=== PATIENT | female | born 1985 | race Caucasian/White ===

== ENCOUNTER 2019-08-26 09:01 | Emergency (ER) | payer SELFPAY ==
[~2019-08-26] VITALS: Ht 162 cm; Wt 41.7 kg
[~2019-08-26 09:01] MED LIST: ACET1TAB12 PO; ACHD5005 PO; ACHYD1T PO; ALB0.5V IH; ALBU17AE3 IH; ALPR.5T PO; ALPR1TAB7; AMIT100T2 PO; AMOX500C2 PO; CEPH500C PO; CIPR500S2 PO; CODE-54 PO; CPR500T PO; DCS100C PO; FAMO-119 PO; FERR-57 PO; HYDR-3454 PO; HYDR-690 PO; HYDR1CAP2 PO; HYDR1TAB75 PO; HYOS0.1216 PO; IBP800T PO; LISD70CA3 PO; METH4TAB PO; METR500T PO; MUPI1OIN5; NAPR-243 PO; NITR-65 PO; NITR100C3 PO; OMEP20CA12 PO; OMEP20TA7 PO; OMEP40CA27 PO; PANT40TA2 PO; PENI500T PO; PHEN200T27 PO; PREN1TAB39 PO; PRX20T PO; RANI150T90 PO; SUCR1TAB36 PO; SULF1TAB35 PO; TRAZ150T42 PO; TRM50T PO; VIVANCE
[2019-08-26 09:43] LABS: BILIRUBIN,URINE NEGATIVE (NEGATIVE); CLARITY,URINE SL CLOUDY; COLOR,URINE YELLOW; GLUCOSE, URINE (UA) NEGATIVE (NEGATIVE); KETONES,URINE NEGATIVE (NEGATIVE); LEUKOCYTE ESTERASE ,URINE TRACE (NEGATIVE); NITRITE,URINE POSITIVE (NEGATIVE); PROTEIN,URINE NEGATIVE (NEGATIVE)
[2019-08-26 09:50] LABS: BACTERIA,URINE LARGE /HPF
[2019-08-26] MEDS ORDERED: PHENAZOPYRIDINE 100 MG (PYRIDIUM) TABLET PO STA (10:54)
[2019-08-26] MEDS ORDERED: LACTATED RINGERS 1,000 ML IV ONE (10:54)
[2019-08-26] MEDS ORDERED: KETOROLAC 30 MG/ML VIAL IVP STA (10:54)
[2019-08-26 11:05] LABS: BASOPHILS % (AUTO) 0 % (0-10); EOSINOPHILS % (AUTO) 0 % (0-10); HEMATOCRIT 46 % (35-52); HEMOGLOBIN 15.7 G/DL (11.5-16.0); LYMPHOCYTES # (AUTO) 2.6 X 10^3 (1.0-4.0); LYMPHOCYTES % (AUTO) 25 % (12-44); MEAN CORPUSCULAR HEMOGLOBIN 33 PG (25-34); MEAN CORPUSCULAR HGB CONC 34 G/DL (32-36); MEAN CORPUSCULAR VOLUME 96 FL (80-99); MEAN PLATELET VOLUME 9.7 FL (7.4-10.4); MONOCYTES # (AUTO) 0.8 X 10^3 (0.0-1.0); MONOCYTES % (AUTO) 7 % (0-12); NEUTROPHILS # (AUTO) 7.2 X 10^3 (1.8-7.8); NEUTROPHILS % (AUTO) 68 % (42-75); PLATELET COUNT 202 10^3/uL (130-400); RED CELL DISTRIBUTION WIDTH 13.2 % (10.0-14.5); WHITE BLOOD COUNT 10.7 10^3/uL (4.3-11.0)
[2019-08-26 11:21] LABS: ALANINE AMINOTRANSFERASE 29 U/L (0-55); ALBUMIN 4.6 GM/DL (3.2-4.5); ALKALINE PHOSPHATASE 52 U/L (40-136); BILIRUBIN,TOTAL 0.5 MG/DL (0.1-1.0); BUN/CREATININE RATIO 18; CALCIUM 9.7 MG/DL (8.5-10.1); CARBON DIOXIDE 20 MMOL/L (21-32); CHLORIDE 110 MMOL/L (98-107); CREATININE SERUM 0.72 MG/DL (0.60-1.30); GFR ESTIMATED > 60; GLUCOSE 85 MG/DL (70-105); POTASSIUM 4.3 MMOL/L (3.6-5.0); SODIUM 138 MMOL/L (135-145); TOTAL PROTEIN 7.8 GM/DL (6.4-8.2)
[2019-08-26] MEDS ORDERED: cefTRIAXone FOR IV USE 1,000 MG in WATER (STERILE) FOR INJECTION 10 ML IV STA (11:51)
--- NOTE | 2019-08-26 12:22 | ED Abdominal Pain ---
General Chief Complaint: Abdominal/GI Problems Stated Complaint: R SIDE PAIN Nursing Triage Note: pt presents to ed with complaints of r lower abdominal and flank pain that that woke her up at 0200 this am. pt also reports n/v but states that is more of a chronic issue. Sepsis Screen: No Definite Risk Source of Information: Patient, Family Exam Limitations: No Limitations History of Present Illness Date Seen by Provider: Aug 26, 2019 Time Seen by Provider: 10:44 Initial Comments Here with report of right lower abdominal pain that is in the flank as well. UA done on arrival is nitrite positive. She reports that she's had some foul- smelling urine and pain over the last couple of days. Pain woke her up this morning early and has persisted since then. She has not taken anything for the pain. Denies fever. She has had some nausea and vomiting without she reports is related to esophageal strictures. He states it may be related a little bit to the illness now as well. Denies vaginal discharge or bleeding. Has had appendectomy. Denies bowel problems. Timing/Duration: 2-3 Days, Getting Worse Severity/Quality: Moderate Location: RLQ, Flank Radiation: Back, Groin Activities at Onset: None Associated Symptoms: Back Pain; No Chest Pain, No Fever/Chills; Nausea/Vomiting; No Shortness of Air, No Weakness Allergies and Home Medications Allergies Coded Allergies: acetaminophen (Verified Allergy, Unknown, 02/27/10) codeine (Verified Allergy, Unknown, 02/27/10) Home Medications Pantoprazole Sodium 40 Mg Tablet.dr, 40 MG PO DAILY Prescribed by: CHERYL ROBERT on 04/09/16 6396 Patient Home Medication List Home Medication List Reviewed: Yes Review of Systems Review of Systems Constitutional: see HPI; No chills, No fever EENTM: No Symptoms Reported Respiratory: No Symptoms Reported Cardiovascular: No Symptoms Reported Gastrointestinal: See HPI Genitourinary: See HPI Musculoskeletal: see HPI Skin: no symptoms reported All Other Systems Reviewed Negative Unless Noted: Yes Past Eoojphe-Rdjdrb-Hlaxus Hx Past Med/Social Hx: Reviewed Nursing Past Med/Soc Hx Patient Social History Alcohol Use: Denies Use Recreational Drug Use: Yes (weed) Drug of Choice: METH IV Smoking Status: Current Everyday Smoker Type Used: Cigarettes Former Smoker, Quit: Aug 30, 2015 Recent Foreign Travel: No Contact w/Someone Who Travel: No Recent Infectious Disease Expo: No Recent Hopitalizations: Yes (CHILDBIRTH X5) Physical Abuse: No Sexual Abuse: No Mistreated: No Fear: No Immunizations Up To Date Date of Influenza Vaccine: Mar 09, 2011 Seasonal Allergies Seasonal Allergies: No Past Medical History Surgeries: Yes (C-SECTIONS X2 2010 HYST.) Hysterectomy Respiratory: Yes Asthma Cardiac: No Neurological: No Reproductive Disorders: Yes Female Reproductive Disorders: Ovarian Cyst [employer] History: Hysterectomy Sexually Transmitted Disease: No UTI-Chronic Gastrointestinal: Yes (hep c, ) Hepatitis, Esophagitis Musculoskeletal: No Endocrine: No Cancer: Yes Esophageal Psychosocial: Yes Blood Disorders: No Family Medical History Reviewed Nursing Family Hx No Pertinent Family Hx Physical Exam Vital Signs Vital Signs - First Documented 08/26/19 09:14 Temp 36.6 Pulse 107 Resp 20 B/P (MAP) 95/78 (84) Pulse Ox 97 Capillary Refill : Less Than 3 Seconds Height/Weight/BMI Height: 5'4" Weight: 111lbs. oz. [id number]; 15.00 BMI Method:Stated General Appearance: WD/WN, mild distress Neck: full range of motion, supple Respiratory: lungs clear, normal breath sounds Cardiovascular: no murmur, tachycardia Gastrointestinal: soft; No guarding, No rebound; tenderness (right lower quadrant) Extremities: non-tender, normal inspection Back: CVA tenderness (R); No CVA tenderness (L), No vertebral tenderness Neurologic/Psychiatric: alert, oriented x 3 Skin: normal color, warm/dry Progress/Results/Core Measures Results/Orders Lab Results Laboratory Tests Test 08/26/19 09:19 08/26/19 10:50 Range/Units Urine Color YELLOW Urine Clarity SL CLOUDY Urine pH 6.0 5-9 Urine Specific [place] >=1.030 1.016-1.022 Urine Protein NEGATIVE NEGATIVE Urine Glucose (UA) NEGATIVE NEGATIVE Urine Ketones NEGATIVE NEGATIVE Urine Nitrite POSITIVE H NEGATIVE Urine Bilirubin NEGATIVE NEGATIVE Urine Urobilinogen 0.2 < = 1.0 MG/DL Urine Leukocyte Esterase TRACE H NEGATIVE Urine RBC (Auto) NEGATIVE NEGATIVE Urine RBC NONE /HPF Urine WBC 2-5 /HPF Urine Squamous Epithelial Cells 2-5 /HPF Urine Crystals NONE /LPF Urine Bacteria LARGE H /HPF Urine Casts NONE /LPF Urine Mucus NEGATIVE /LPF Urine Culture Indicated YES White Blood Count 10.7 4.3-11.0 10^3/uL Red Blood Count 4.83 4.35-5.85 10^6/uL Hemoglobin 15.7 11.5-16.0 G/DL Hematocrit 46 35-52 % Mean Corpuscular Volume 96 80-99 FL Mean Corpuscular Hemoglobin 33 25-34 PG Mean Corpuscular Hemoglobin Concent 34 32-36 G/DL Red Cell Distribution Width 13.2 10.0-14.5 % Platelet Count 202 130-400 10^3/uL Mean Platelet Volume 9.7 7.4-10.4 FL Neutrophils (%) (Auto) 68 42-75 % Lymphocytes (%) (Auto) 25 12-44 % Monocytes (%) (Auto) 7 0-12 % Eosinophils (%) (Auto) 0 0-10 % Basophils (%) (Auto) 0 0-10 % Neutrophils # (Auto) 7.2 1.8-7.8 X 10^3 Lymphocytes # (Auto) 2.6 1.0-4.0 X 10^3 Monocytes # (Auto) 0.8 0.0-1.0 X 10^3 Eosinophils # (Auto) 0.0 0.0-0.3 10^3/uL Basophils # (Auto) 0.0 0.0-0.1 10^3/uL Sodium Level 138 135-145 MMOL/L Potassium Level 4.3 3.6-5.0 MMOL/L Chloride Level 110 H 98-107 MMOL/L Carbon Dioxide Level 20 L 21-32 MMOL/L Anion Gap 8 5-14 MMOL/L Blood Urea Nitrogen 13 7-18 MG/DL Creatinine 0.72 0.60-1.30 MG/DL Estimat Glomerular Filtration Rate > 60 BUN/Creatinine Ratio 18 Glucose Level 85 70-105 MG/DL Calcium Level 9.7 8.5-10.1 MG/DL Corrected Calcium 8.5-10.1 MG/DL Total Bilirubin 0.5 0.1-1.0 MG/DL Aspartate Amino Transf (AST/SGOT) 21 5-34 U/L Alanine Aminotransferase (ALT/SGPT) 29 0-55 U/L Alkaline Phosphatase 52 40-136 U/L C-Reactive Protein High Sensitivity 0.05 0.00-0.50 MG/DL Total Protein 7.8 6.4-8.2 GM/DL Albumin 4.6 H 3.2-4.5 GM/DL My Orders Orders - WALT HUSAIN MD Ua Culture If Indicated (08/26/19 09:27) Urine Culture (08/26/19 09:19) Cbc With Automated Diff (08/26/19 10:54) Comprehensive Metabolic Panel (08/26/19 10:54) Hs C Reactive Protein (08/26/19 10:54) Ed Iv/Invasive Line Start (08/26/19 10:54) Lactated Ringers (Lr 1000 Ml Iv Solution (08/26/19 10:54) Ketorolac Injection (Toradol Injection) (08/26/19 10:54) Phenazopyridine Tablet (Pyridium Tablet) (08/26/19 10:54) Ceftriaxone For Iv Use (Rocephin For I (08/26/19 11:51) Medications Given in ED Current Medications Medications Dose Ordered Sig/Tim Route Start Time Stop Time Status Last Admin Dose Admin Lactated Ringer's 1,000 ml @ 0 mls/hr Q0M ONCE IV 08/26/19 10:54 08/26/19 10:56 DC 08/26/19 11:05 0 MLS/HR Vital Signs/I&O 08/26/19 09:14 Temp 36.6 Pulse 107 Resp 20 B/P (MAP) 95/78 (84) Pulse Ox 97 Blood Pressure Mean: 84 Progress Progress Note : Progress Note Seen and evaluated. I discussed multiple options with the patient after UA obtained and noted to be nitrite positive concerning for UTI. Due to moderate amount of pain we will go ahead and get IV and give 1 L LR and Toradol 30 mg IV. We will check labs. Monitor patient. 1200: Labs reassuring. Rocephin 1 g IV ord ered. Pain is much better after Toradol and we did give peridium 100 mg by mouth as well. We will continue outpatient therapy. Discharged home with return precautions. Patient verbalize understanding instructions and agreement with plan. Departure Impression Primary Impression: UTI (urinary tract infection) Qualified Codes: N30.00 - Acute cystitis without hematuria Disposition: HOME, SELF-CARE Condition: Improved Departure-Patient Inst. Decision time for Depature: 12:23 Referrals: [facility] (PCP/Family) Primary Care Physician Patient Instructions: Urinary Tract Infection, Adult (DC) Add. Discharge Instructions: All discharge instructions reviewed with patient and/or family. Voiced understanding. You may take ibuprofen 4 mg every 6-8 hours as needed for pain. You may take Tylenol/acetaminophen 1000 mg every 8 hours as needed for fever or pain. Drink plenty of fluids. Try to eat a normal diet and increase her nutrition including using supplement shakes if needed. Follow-up with your Dr. in a few days for recheck. Return for worse pain, fever, vomiting, weakness, breathing problems or other concerns as needed. Scripts Cephalexin (Cephalexin) 500 Mg Tablet 500 MG PO BID, #14 TAB 0 Refills Prov: WALT HUSAIN MD 08/26/19 WALT HUSAIN MD Aug 26, 2019 12:22
[2019-08-26] MEDS ORDERED: CEPH500T PO (12:23)
[2019-08-26 12:46] VITALS: BP 110/80
== END 2019-08-26 12:46 | disposition home or self-care (01) ==
LOC: EDUNIT# 09:01 → ER 09:02
DX: N30.00 Acute cystitis without hematuria (principal); J45.909 Unspecified asthma, uncomplicated; Z85.01 Personal history of malignant neoplasm of esophagus; Z87.19 Personal history of other diseases of the digestive system; F17.210 Nicotine dependence, cigarettes, uncomplicated; Z88.5 Allergy status to narcotic agent
CPT/HCPCS: 36415; 80053; 81000; 85025; 86141; 87077; 87088; 87186

== ENCOUNTER 2020-01-02 22:34 | Emergency (ER) | payer SELFPAY ==
[~2020-01-02 22:34] MED LIST changes: +CEPH500T PO
--- NOTE | 2020-01-03 01:00 | NUR ---
PT PRESENTED TO ER REGISTRATION AND STATED SHE WAS LEAVING.
== END 2020-01-03 01:00 | disposition left against medical advice (07) ==
LOC: EDUNIT# 22:34 → ER 22:35
DX: R10.9 Unspecified abdominal pain (principal)

== ENCOUNTER 2020-12-30 19:28 | Emergency (ER) | payer SELFPAY ==
[~2020-12-30] VITALS: Ht 162.5 cm; Wt 50.0 kg
[~2020-12-30 19:28] MED LIST changes: -OMEP40CA27 PO; +OMEP40CA6 PO
[2020-12-30 19:56] VITALS: BP 108/85
[2020-12-30] MEDS ORDERED: DOXY100T2 PO (20:38)
[2020-12-30] MEDS ORDERED: NAPR-1071 PO (20:38)
--- NOTE | 2020-12-30 20:38 | ED Upper Extremity ---
General Chief Complaint: Upper Extremity Stated Complaint: L ARMPIT SORE Nursing Triage Note: Pt ambulatory into ER with complaint of Knot under L. Armpit x2 days. Pt states that yesterday it was sore, and now it has gotten bigger and is worse. Pt denies it having a meneses or anything indicating it needs popped. Source: patient Exam Limitations: no limitations History of Present Illness Date Seen by Provider: Dec 30, 2020 Time Seen by Provider: 20:35 Initial Comments To ER with knot under left armpit for 2 days no fevers or chills. Is very tender to touch. Onset: just prior to arrival Severity: moderate Pain/Injury Location: left other (Axilla) Method of Injury: unknown Allergies and Home Medications Allergies Coded Allergies: acetaminophen (Verified Allergy, Unknown, 02/27/10) codeine (Verified Allergy, Unknown, 02/27/10) Home Medications Cephalexin 500 Mg Tablet, 500 MG PO BID Prescribed by: WALT HUSAIN on 08/26/19 1223 Pantoprazole Sodium 40 Mg Tablet.dr, 40 MG PO DAILY Prescribed by: CHERYL ROBERT on 04/09/16 1406 Patient Home Medication List Home Medication List Reviewed: Yes Review of Systems Constitutional: see HPI EENTM: see HPI Respiratory: no symptoms reported Cardiovascular: no symptoms reported Genitourinary: no symptoms reported Musculoskeletal: see HPI Skin: no symptoms reported Past Auzynob-Ebwhuc-Zfdyic Hx Patient Social History Tobacco Use?: Yes Tobacco type used: Cigarettes Smoking Status: Current Everyday Smoker Use of E-Cig and/or Vaping dev: No Substance use?: No Alcohol Use?: No Pt feels they are or have been: No Immunizations Up To Date Influenza Vaccine Up-to-Date: No; Not Current Seasonal Allergies Seasonal Allergies: No Past Medical History Surgeries: Yes (C-SECTIONS X2 2010 HYST.) Hysterectomy Respiratory: Yes Asthma Cardiac: No Neurological: No Reproductive Disorders: Yes Female Reproductive Disorders: Ovarian Cyst [employer] History: Hysterectomy Sexually Transmitted Disease: No UTI-Chronic Gastrointestinal: Yes (hep c, ) Hepatitis, Esophagitis Musculoskeletal: No Endocrine: No Cancer: Yes Esophageal Psychosocial: Yes Blood Disorders: No Family Medical History No Pertinent Family Hx Physical Exam Vital Signs Vital Signs - First Documented 12/30/20 19:56 Temp 36.2 Pulse 110 Resp 16 B/P (MAP) 108/85 (93) Pulse Ox 98 O2 Delivery Room Air Capillary Refill : Less Than 3 Seconds Height, Weight, BMI Height: 5'4" Weight: 111lbs. oz. 50.670641fy; 18.00 BMI Method:Stated General Appearance: WD/WN, no apparent distress Neck: non-tender, full range of motion Cardiovascular: regular rate, rhythm, no murmur Respiratory: no respiratory distress, no accessory muscle use Gastrointestinal: normal bowel sounds, non tender Shoulder: normal inspection, non-tender Elbow/Forearm: normal inspection, non-tender Wrist: Yes normal inspection, Yes non-tender Hand: normal inspection, non-tender Neurologic/Psychiatric: alert, normal mood/affect, oriented x 3 Skin: normal color, warm/dry . She shaves her armpit though there is no overlying infection that is apparent in the skin. No erythema no pustule. This is tender to palpation. On bedside ultrasound there is some cobblestoning of the tissues at this location but no fluid collection to suggest drainable abscess. Discussed with her that this could represent a very early infectious process that may develop into an abscess though it is more likely to be a reactive lymph node. Progress/Results/Core Measures Results/Orders My Orders Orders - CHERYL ROBERT APRN Rx-Hydrocodone/Apap 5-325 Mg (Rx-Vicodin (12/30/20 20:45) Doxycycline Hyclate Tablet (Vibramycin T (12/30/20 20:45) Vital Signs/I&O 12/30/20 19:56 Temp 36.2 Pulse 110 Resp 16 B/P (MAP) 108/85 (93) Pulse Ox 98 O2 Delivery Room Air Blood Pressure Mean: 93 Departure Impression Primary Impression: Lymphadenopathy, axillary Disposition: 01 HOME, SELF-CARE Condition: Stable Departure-Patient Inst. Decision time for Depature: 20:36 Referrals: [facility] (PCP/Family) Primary Care Physician Patient Instructions: Lymphadenitis Add. Discharge Instructions: 1. This could represent a very early infectious process that may develop into an abscess but currently there is no fluid collection or drainable abscess. This more likely represents a inflamed lymph node. Take the medication as directed. All discharge instructions reviewed with patient and/or family. Voiced understanding. Scripts Doxycycline Hyclate (Doxycycline Hyclate) 100 Mg Tablet 100 MG PO BID, #14 TAB 0 Refills Prov: CHERYL ROBERT APRN 12/30/20 Naproxen (Naprosyn) 500 Mg Tablet 500 MG PO BID PRN for PAIN-MODERATE (5-7), #30 TAB 0 Refills Prov: CHERYL ROBERT APRN 12/30/20 CHERYL ROBERT APRN Dec 30, 2020 20:38
[2020-12-30] MEDS ORDERED: DOXYCYCLINE 100 MG (VIBRAMYCIN) TABLET PO SCH (20:45)
== END 2020-12-30 20:44 | disposition home or self-care (01) ==
LOC: EDUNIT# 19:28 → ER 19:29
DX: R59.1 Generalized enlarged lymph nodes (principal); J45.909 Unspecified asthma, uncomplicated; F17.210 Nicotine dependence, cigarettes, uncomplicated
CPT/HCPCS: 99283

== ENCOUNTER 2021-08-05 09:30 | Emergency (ER) | payer SELFPAY ==
[~2021-08-05] VITALS: Ht 162.5 cm; Wt 50.0 kg
[~2021-08-05 09:30] MED LIST changes: +DOXY100T2 PO; +NAPR-1071 PO
[2021-08-05] MEDS ORDERED: KETOROLAC 30 MG/ML VIAL IVP ONE (09:45)
[2021-08-05] MEDS ORDERED: ONDANSETRON 4 MG/2 ML (SDV) Z0FRAN IVP ONE (09:45)
[2021-08-05] MEDS ORDERED: LACTATED RINGERS 1,000 ML IV ONE ×2 (09:45→10:24)
[2021-08-05] MEDS ORDERED: cefTRIAXone 1 GM PRE-MIX 50 ML IV ONE (09:45)
--- NOTE | 2021-08-05 09:49 | ED Abdominal Pain ---
General Stated Complaint: R SIDE / BACK PAIN - VOMITING Source of Information: Patient Exam Limitations: No Limitations History of Present Illness Date Seen by Provider: Aug 05, 2021 Time Seen by Provider: 09:28 Initial Comments Patient to the ER by private conveyance with her significant other with chief complaint that since yesterday she has been having intractable right flank down into her right groin abdominal pain 6 out of 10 crampy. She says she is intermittently had pains in this area over the past month to 2 months. No fevers or chills but she has had nausea and vomiting this morning. She took ibu profen 2 tablets yesterday and 3 tablets this morning about 2 hours ago which took the edge off her pain. No diarrhea. She had a normal bowel movement yesterday. She says she had some painful urination this morning and noticed her urine was dark. No history of kidney stones. No history of STI. No discharge or dyspareunia. She has had a hysterectomy related to pelvic floor prolapse and [facility]. She has had her appendix out in the past. She has had 3 C-sections and no other abdominal surgeries. Last oral intake was approximately 8:00. Allergies and Home Medications Allergies Coded Allergies: acetaminophen (Verified Allergy, Unknown, 02/27/10) codeine (Verified Allergy, Unknown, 02/27/10) Patient Home Medication List Home Medication List Reviewed: Yes Alprazolam (Alprazolam) 1 Mg Tablet, (Reported) Entered as Reported by: TANNER LOUIS on 04/09/16 1203 Cephalexin (Cephalexin) 500 Mg Tablet, 500 MG PO BID Prescribed by: WALT HUSAIN on 08/26/19 1223 Doxycycline Hyclate (Doxycycline Hyclate) 100 Mg Tablet, 100 MG PO BID Prescribed by: CHERYL ROBERT on 12/30/202037 Naproxen (Naprosyn) 500 Mg Tablet, 500 MG PO BID PRN for PAIN-MODERATE (5-7) Prescribed by: CHERYL ROBERT on 12/30/202037 Pantoprazole Sodium (Protonix) 40 Mg Tablet.dr, 40 MG PO DAILY Prescribed by: CHERYL ROBERT on 04/09/16 1406 Review of Systems Review of Systems Constitutional: No chills, No fever, No malaise EENTM: No Blurred Vision, No Double Vision Respiratory: Denies Cough, Denies Shortness of Air Cardiovascular: Denies Chest Pain, Denies Lightheadedness Gastrointestinal: See HPI; Denies Abdomen Distended; Abdominal Pain; Denies Constipated, Denies Diarrhea; Nausea, Vomiting Genitourinary: Burning; Denies Discharge, Denies Drainage, Denies Frequency; Flank Pain (Right); Denies Hematuria Musculoskeletal: No back pain, No joint pain All Other Systems Reviewed Negative Unless Noted: Yes Past Sgguyew-Ntwjgf-Ktssas Hx Patient Social History Tobacco Use?: Yes Tobacco type used: Cigarettes Smoking Status: Current Everyday Smoker (Pack per day) Use of E-Cig and/or Vaping dev: No Substance use?: Yes Substance type: Marijuana Alcohol Use?: No Seasonal Allergies Seasonal Allergies: No Past Medical History Surgeries: Yes (C-SECTIONS X2 2010 HYST.) Appendectomy, Hysterectomy Respiratory: Yes Asthma Cardiac: No Neurological: No Reproductive Disorders: Yes Female Reproductive Disorders: Ovarian Cyst [employer] History: Hysterectomy Sexually Transmitted Disease: No UTI-Chronic Gastrointestinal: Yes (hep c, ) Hepatitis, Esophagitis Musculoskeletal: No Endocrine: No Cancer: Yes Esophageal Psychosocial: Yes Blood Disorders: No Family Medical History No Pertinent Family Hx Physical Exam Vital Signs Vital Signs - First Documented 08/05/21 09:35 Temp 36.5 Pulse 114 Resp 18 B/P (MAP) 115/71 (86) Pulse Ox 97 Capillary Refill : Height/Weight/BMI Height: 5'4" Weight: 111lbs. oz. 50.425477vy; 18.00 BMI Method:Stated General Appearance: WD/WN, mild distress HEENT: PERRL/EOMI, pharynx normal Neck: full range of motion Respiratory: no respiratory distress, no accessory muscle use Cardiovascular: normal peripheral pulses, regular rate, rhythm Gastrointestinal: normal bowel sounds, soft, no organomegaly, tenderness (Right lower quadrant without rebound tenderness, mesenteric signs. No Rovsing or Andrade's sign) Extremities: normal range of motion, normal inspection, normal capillary refill Back: normal inspection, CVA tenderness (R) (Exquisite to light percussion) Neurologic/Psychiatric: alert, normal mood/affect Skin: normal color, warm/dry Focused Exam Lactate Level 08/05/21 09:45: Lactic Acid Level 0.84 Lactic Acid Level Laboratory Tests Test 08/05/21 09:45 Lactic Acid Level 0.84 MMOL/L (0.50-2.00) Progress/Results/Core Measures Results/Orders Lab Results Laboratory Tests Test 08/05/21 09:45 08/05/21 10:05 Range/Units White Blood Count 16.9 H 4.3-11.0 10^3/uL Red Blood Count 4.10 3.80-5.11 10^6/uL Hemoglobin 13.6 11.5-16.0 g/dL Hematocrit 40 35-52 % Mean Corpuscular Volume 98 80-99 fL Mean Corpuscular Hemoglobin 33 25-34 pg Mean Corpuscular Hemoglobin Concent 34 32-36 g/dL Red Cell Distribution Width 12.9 10.0-14.5 % Platelet Count 205 130-400 10^3/uL Mean Platelet Volume 9.4 9.0-12.2 fL Immature Granulocyte % (Auto) 1 % Neutrophils (%) (Auto) 84 H 42-75 % Lymphocytes (%) (Auto) 7 L 12-44 % Monocytes (%) (Auto) 8 0-12 % Eosinophils (%) (Auto) 0 0-10 % Basophils (%) (Auto) 0 0-10 % Neutrophils # (Auto) 14.2 H 1.8-7.8 10^3/uL Lymphocytes # (Auto) 1.3 1.0-4.0 10^3/uL Monocytes # (Auto) 1.3 H 0.0-1.0 10^3/uL Eosinophils # (Auto) 0.1 0.0-0.3 10^3/uL Basophils # (Auto) 0.0 0.0-0.1 10^3/uL Immature Granulocyte # (Auto) 0.1 0.0-0.1 10^3/uL Neutrophils % (Manual) 86 % Lymphocytes % (Manual) 7 % Monocytes % (Manual) 3 % Eosinophils % (Manual) 0 % Basophils % (Manual) 0 % Band Neutrophils 4 % Blood Morphology Comment NORMAL Prothrombin Time 14.5 12.2-14.7 SEC INR Comment 1.1 0.8-1.4 Activated Partial Thromboplast Time 35 24-35 SEC Sodium Level 137 135-145 MMOL/L Potassium Level 3.6 3.6-5.0 MMOL/L Chloride Level 104 98-107 MMOL/L Carbon Dioxide Level 23 21-32 MMOL/L Anion Gap 10 5-14 MMOL/L Blood Urea Nitrogen 15 7-18 MG/DL Creatinine 0.79 0.60-1.30 MG/DL Estimat Glomerular Filtration Rate 99 BUN/Creatinine Ratio 19 Glucose Level 88 70-105 MG/DL Lactic Acid Level 0.84 0.50-2.00 MMOL/L Calcium Level 9.6 8.5-10.1 MG/DL Corrected Calcium 9.4 8.5-10.1 MG/DL Total Bilirubin 1.1 H 0.1-1.0 MG/DL Aspartate Amino Transf (AST/SGOT) 24 5-34 U/L Alanine Aminotransferase (ALT/SGPT) 38 0-55 U/L Alkaline Phosphatase 64 40-136 U/L Total Protein 7.6 6.4-8.2 GM/DL Albumin 4.2 3.2-4.5 GM/DL Urine Color ORANGE Urine Clarity SL CLOUDY Urine pH 6.0 5-9 Urine Specific [place] 1.025 H 1.016-1.022 Urine Protein 2+ H NEGATIVE Urine Glucose (UA) NEGATIVE NEGATIVE Urine Ketones TRACE H NEGATIVE Urine Nitrite POSITIVE H NEGATIVE Urine Bilirubin NEGATIVE NEGATIVE Urine Urobilinogen 2.0 < = 1.0 MG/DL Urine Leukocyte Esterase 2+ H NEGATIVE Urine RBC (Auto) 3+ H NEGATIVE Urine RBC 5-10 H /HPF Urine WBC >100 H /HPF Urine Squamous Epithelial Cells 2-5 /HPF Urine Crystals NONE /LPF Urine Bacteria LARGE H /HPF Urine Casts NONE /LPF Urine Mucus NEGATIVE /LPF Urine Culture Indicated YES My Orders Orders - KERRI MONTERO Urine Bedside (08/05/21 09:34) Cbc With Automated Diff (08/05/21 09:40) Comprehensive Metabolic Panel (08/05/21 09:40) Blood Culture (08/05/21 09:40) Urinalysis (08/05/21 09:40) Urine Culture (08/05/21 09:40) Protime With Inr (08/05/21 09:40) Partial Thromboplastin Time (08/05/21 09:40) Chest 1 View, Ap/Pa Only (08/05/21 09:40) Ed Iv/Invasive Line Start (08/05/21 09:40) Ed Iv/Invasive Line Start (08/05/21 09:40) Vital Signs Adult Sepsis Patie Q15M (08/05/21 09:40) Remove Rings In Anticipation O (08/05/21 09:40) Lactic Acid Analyzer (08/05/21 09:40) Lactated Ringers (Lr 1000 Ml Iv Solution (08/05/21 09:45) Ceftriaxone 1 Gm Pre-Mix (Rocephin 1 Gm (08/05/21 09:45) Ct Abd/Pelvis Wo(Kidney Stone) (08/05/21 09:40) Ketorolac Injection (Toradol Injection) (08/05/21 09:45) Ondansetron Injection (Zofran Injectio (08/05/21 09:45) Manual Differential (08/05/21 09:45) Lactated Ringers (Lr 1000 Ml Iv Solution (08/05/21 10:24) Urine Culture (08/05/21 10:05) Medications Given in ED Current Medications Medications Dose Ordered Sig/Tim Route Start Time Stop Time Status Last Admin Dose Admin Ceftriaxone Sodium/Dextrose 50 ml @ 100 mls/hr ONCE ONCE IV 08/05/21 09:45 08/05/21 10:14 DC 08/05/21 10:07 100 MLS/HR Ketorolac Tromethamine 30 mg ONCE ONCE IVP 08/05/21 09:45 08/05/21 09:46 DC 08/05/21 10:01 30 MG Lactated Ringer's 1,000 ml @ 0 mls/hr Q0M ONCE IV 08/05/21 09:45 08/05/21 09:46 DC 08/05/21 10:00 1,000 MLS/HR Ondansetron HCl 8 mg ONCE ONCE IVP 08/05/21 09:45 08/05/21 09:46 DC 08/05/21 10:02 8 MG Vital Signs/I&O 08/05/21 09:35 Temp 36.5 Pulse 114 Resp 18 B/P (MAP) 115/71 (86) Pulse Ox 97 Progress Progress Note #1: Time: 09:47 Progress Note Pyelonephritis with possible sepsis versus kidney stone versus less likely a colitis or ovarian cyst. Plan to obtain better part of a septic work-up and get a CT with no IV contrast kidney stone protocol. A liter of fluids would be 20 mL/kg. She is quite tachycardic 115 probably due to pain. Afebrile. Toradol to start for pain 30 mg IV and 8 of Zofran for her nausea. We will keep her n.p.o. Progress Note #2: Time: 10:55 Progress Note Patient's pain is only marginally improved. We will give her hydrocodone. Her nausea is gone so Zofran should work for her. We discussed stay in the hospital for her sepsis and pyelonephritis. She says she is feeling better and would prefer to try and do outpatient therapy first. We will set her up for 2 more days of Rocephin IM and doxycycline to follow. Return precautions. Patient is okay with this plan. She can follow-up with her primary care doctor. She has a GI doctor at [place] Dr. Myers who has scoped her and done dilatations in the past. She says she is due to go see him again soon so we encouraged her to keep her follow-up with him. We will give her the name of local surgeon, Dr. Chapin in case she would prefer to follow-up locally but encouraged her strongly to go to her GI doc who knows her. She has about half of her 20 mL/kg fluid bolus and and her antibiotics are in. Her heart rate is already down to 90. Rest of her vitals are normal. Lactate is closed. Diagnostic Imaging Diagonstic Imaging: Xray Plain Films/CT/US/NM/MRI: chest Comments [facility]. [place], [place] NAME: NOEMÍ CORRAL [facility] REC#: [id number] PT STATUS: REG ER : 1985 PHYSICIAN: KERRI MONTERO MD ADMIT DATE: 08/05/21/ER Draft Date of Exam:08/05/21 CHEST 1 VIEW, AP/PA ONLY EXAMINATION: Chest 1 view HISTORY: Right-sided back pain. Sepsis. COMPARISON: 04/20/2011. FINDINGS: The lung volumes are normal. No focal consolidation is seen. No large pleural effusion or pneumothorax is seen. The cardiomediastinal silhouette is normal in size and contour. No acute osseous abnormality is seen. IMPRESSION: 1. No acute pleuroparenchymal process. Dictated on workstation # [id number] Dict: 08/05/21 1047 Trans: 08/05/21 1048 [id number] Interpreted by: SANDRA LUNDBERG DO Electronically signed by: Reviewed: Reviewed by Me Diagonstic Imaging: CT Plain Films/CT/US/NM/MRI: abdomen, pelvis Comments [facility]. [place], [place] NAME: NOEMÍ CORRAL [facility] REC#: [id number] PT STATUS: REG ER : 1985 PHYSICIAN: KERRI MONTERO MD ADMIT DATE: 08/05/21/ER Draft Date of Exam:08/05/21 CT ABD/PELVIS WO(KIDNEY STONE) CLINICAL INDICATION: Patient with right-sided anterior pain for 14 hours. Patient has a surgical history of appendectomy. EXAM: CT exam of the abdomen and pelvis is performed without IV or oral contrast using stone protocol. Coronal and sagittal reformatted images were created. Auto Exposure Controls were utilized during the CT exam to meet ALARA standards for radiation dose reduction. COMPARISON: CT scan of the abdomen and pelvis with contrast dated 03/10/2016. FINDINGS: The visualized lung bases are clear. The bones show no significant abnormality. There is interval progression of marked circumferential thickening of the visualized portion of the distal esophagus. There is interval progression of decreased total body fat loss. The liver, spleen, pancreas, gallbladder, and adrenal glands show no gross abnormality as visualized. The bladder is decompressed and unable to be appropriately evaluated on this exam. There are no definite urinary tract stones, as visualized. There are calcifications along the vessels of the pelvic jj and phleboliths are again noted. There is no intra-abdominal free air or free fluid. There is a large amount of stool within the right colon and transverse colon. There is no intestinal obstruction. There is no definite lymphadenopathy seen although low intra-abdominal fat limits evaluation of intra-abdominal structures. There is air in the rectum. The previously seen thickening of the anus and rectum has decreased. The extraabdominal and extrapelvic soft tissue structures show no other significant abnormality. IMPRESSION: 1: There is a large amount of stool within the right colon and transverse colon which has developed in the interim. This may be seen with constipation. 2: There is progression of significant circumferential thickening of the distal esophagus. Esophagitis may be considered. A mass should be excluded. Esophagram and/or endoscopy is suggested for further evaluation if this has not been performed already. 3: There is interval progression of total body fat loss. This does limit evaluation of intra-abdominal structures. 4: The previously seen wall thickening of the anus and rectum has decreased in the interim. Dictated on workstation # [id number] Dict: 08/05/21 1026 Trans: 08/05/21 1038 [id number] Interpreted by: COLT SINGH MD Electronically signed by: Reviewed: Reviewed by Me Departure Impression Primary Impression: Pyelonephritis Additional Impressions: Sepsis Qualified Codes: A41.9 - Sepsis, unspecified organism Stricture and stenosis of esophagus Disposition: HOME, SELF-CARE Condition: Stable Departure-Patient Inst. Decision time for Depature: 10:57 Referrals: [facility] [place]/Family) Primary Care Physician HEATH CHAPIN DO Patient Instructions: Esophageal Stricture, Kidney Infection (DC) Add. Discharge Instructions: Keep or make your follow-up appointment with your GI doctor regarding your esophageal thickening. Alternatively you may follow-up with Dr. Chapin, local general surgeon to help manage your symptoms. Drink lots of fluids to stay well-hydrated. Tylenol 650 mg every 6 hours as necessary for fever or pain. Ibuprofen 800 mg every 8 hours as necessary for fever or pain. Hydrocodone 1 tablet every 6 hours necessary for severe breakthrough pain keeping you from being functional. Zofran 1 tablet every 6 hours as necessary for nausea or vomiting. Return tomorrow, Wednesday and around noon or after to receive a shot of Rocephin. 08/06/2021 and 08/07/2021. 08/08/2021 start taking cefdinir twice a day for 7 more days. Follow-up with your primary care doctor in 1 week or sooner as necessary to manage symptoms. Return to the ER for significant fever above 102.5, inability to keep fluids down, intractable nausea, vomiting, pain or other worrisome symptoms. Scripts Cefdinir (Cefdinir) 300 Mg Capsule 300 MG PO BID for 7 Days, #14 CAP 0 Refills Begin 08/08/2021 twice a day. Prov: KERRI MONTERO 08/05/21 Hydrocodone/Acetaminophen (Hydrocodone-Acetamin 5-325 mg) 1 Each Tablet 1 TAB PO Q6H PRN for PAIN-MODERATE (5-7), #12 TAB 0 Refills Prov: KERRI MONTERO 08/05/21 Ondansetron (Ondansetron Odt) 4 Mg Tab.rapdis 4 MG PO Q6H PRN for NAUSEA/VOMITING, #12 TAB 0 Refills Prov: KERRI MONTERO 08/05/21 Work/School Note: Work Release Form Date Seen in the Emergency Department: Aug 05, 2021 Return to Work: Aug 11, 2021 Restrictions: No Restrictions Copy Copies To 1: HEATH CHAPIN TITUS J Aug 05, 2021 09:48
[2021-08-05 10:17] LABS: BASOPHILS % (AUTO) 0 % (0-10); EOSINOPHILS # (AUTO) 0.1 10^3/uL (0.0-0.3); EOSINOPHILS % (AUTO) 0 % (0-10); HEMATOCRIT 40 % (35-52); HEMOGLOBIN 13.6 g/dL (11.5-16.0); LYMPHOCYTES # (AUTO) 1.3 10^3/uL (1.0-4.0); LYMPHOCYTES % (AUTO) 7 % (12-44); MEAN CORPUSCULAR HEMOGLOBIN 33 pg (25-34); MEAN CORPUSCULAR HGB CONC 34 g/dL (32-36); MEAN CORPUSCULAR VOLUME 98 fL (80-99); MEAN PLATELET VOLUME 9.4 fL (9.0-12.2); MONOCYTES # (AUTO) 1.3 10^3/uL (0.0-1.0); MONOCYTES % (AUTO) 8 % (0-12); NEUTROPHILS # (AUTO) 14.2 10^3/uL (1.8-7.8); NEUTROPHILS % (AUTO) 84 % (42-75); PLATELET COUNT 205 10^3/uL (130-400); WHITE BLOOD COUNT 16.9 10^3/uL (4.3-11.0)
[2021-08-05 10:19] LABS: BILIRUBIN,URINE NEGATIVE (NEGATIVE); CLARITY,URINE SL CLOUDY; COLOR,URINE ORANGE; GLUCOSE, URINE (UA) NEGATIVE (NEGATIVE); KETONES,URINE TRACE (NEGATIVE); LEUKOCYTE ESTERASE ,URINE 2+ (NEGATIVE); NITRITE,URINE POSITIVE (NEGATIVE); PROTEIN,URINE 2+ (NEGATIVE)
[2021-08-05 10:28] LABS: INR 1.1 (0.8-1.4); PROTHROMBIN TIME PATIENT 14.5 SEC (12.2-14.7)
[2021-08-05 10:30] LABS: BACTERIA,URINE LARGE /HPF; WBC,URINE >100 /HPF
[2021-08-05 10:31] LABS: ALBUMIN 4.2 GM/DL (3.2-4.5); POTASSIUM 3.6 MMOL/L (3.6-5.0)
[2021-08-05 10:33] LABS: CALCIUM 9.6 MG/DL (8.5-10.1)
[2021-08-05 10:34] LABS: TOTAL PROTEIN 7.6 GM/DL (6.4-8.2)
[2021-08-05 10:36] LABS: BILIRUBIN,TOTAL 1.1 MG/DL (0.1-1.0)
[2021-08-05 10:37] LABS: CREATININE SERUM 0.79 MG/DL (0.60-1.30)
--- NOTE | 2021-08-05 10:40 | Diagnostic Imaging Report ---
CLINICAL INDICATION: Patient with right-sided anterior pain for 14 hours. Patient has a surgical history of appendectomy. EXAM: CT exam of the abdomen and pelvis is performed without IV or oral contrast using stone protocol. Coronal and sagittal reformatted images were created. Auto Exposure Controls were utilized during the CT exam to meet ALARA standards for radiation dose reduction. COMPARISON: CT scan of the abdomen and pelvis with contrast dated 03/10/2016. FINDINGS: The visualized lung bases are clear. The bones show no significant abnormality. There is interval progression of marked circumferential thickening of the visualized portion of the distal esophagus. There is interval progression of decreased total body fat loss. The liver, spleen, pancreas, gallbladder, and adrenal glands show no gross abnormality as visualized. The bladder is decompressed and unable to be appropriately evaluated on this exam. There are no definite urinary tract stones, as visualized. There are calcifications along the vessels of the pelvic jj and phleboliths are again noted. There is no intra-abdominal free air or free fluid. There is a large amount of stool within the right colon and transverse colon. There is no intestinal obstruction. There is no definite lymphadenopathy seen although low intra-abdominal fat limits evaluation of intra-abdominal structures. There is air in the rectum. The previously seen thickening of the anus and rectum has decreased. The extraabdominal and extrapelvic soft tissue structures show no other significant abnormality. IMPRESSION: 1: There is a large amount of stool within the right colon and transverse colon which has developed in the interim. This may be seen with constipation. 2: There is progression of significant circumferential thickening of the distal esophagus. Esophagitis may be considered. A mass should be excluded. Esophagram and/or endoscopy is suggested for further evaluation if this has not been performed already. 3: There is interval progression of total body fat loss. This does limit evaluation of intra-abdominal structures. 4: The previously seen wall thickening of the anus and rectum has decreased in the interim. Dictated by: Dictated on workstation # [id number]
[2021-08-05 10:42] LABS: BAND NEUTROPHILS 4 %; BASOPHILS % (MANUAL) 0 %; EOSINOPHILS % (MANUAL) 0 %; LYMPHOCYTES % (MANUAL) 7 %; MONOCYTES % (MANUAL) 3 %; NEUTROPHILS % (MANUAL) 86 %
[2021-08-05 10:43] LABS: RBC MORPH NORMAL
--- NOTE | 2021-08-05 10:49 | Diagnostic Imaging Report ---
EXAMINATION: Chest 1 view HISTORY: Right-sided back pain. Sepsis. COMPARISON: 04/20/2011. FINDINGS: The lung volumes are normal. No focal consolidation is seen. No large pleural effusion or pneumothorax is seen. The cardiomediastinal silhouette is normal in size and contour. No acute osseous abnormality is seen. IMPRESSION: 1. No acute pleuroparenchymal process. Dictated by: Dictated on workstation # [id number]
[2021-08-05] MEDS ORDERED: HYDROcodone/APAP 5 MG/325 MG (LORTAB) TAB PO ONE (11:00)
[2021-08-05] MEDS ORDERED: ACHD5005 PO (11:07)
[2021-08-05] MEDS ORDERED: ONDA4TAB11 PO (11:07)
[2021-08-05] MEDS ORDERED: CEFD300C3 PO (11:07)
[2021-08-05 11:21] VITALS: BP 117/76
== END 2021-08-05 11:27 | disposition home or self-care (01) ==
LOC: EDUNIT# 09:30 → ER 09:31
DX: N12 Tubulo-interstitial nephritis, not specified as acute or chronic (principal); A41.9 Sepsis, unspecified organism; K22.2 Esophageal obstruction; F17.210 Nicotine dependence, cigarettes, uncomplicated
CPT/HCPCS: 36415; 71045; 74176; 80053; 81000; 83605; 84703; 85007; 85027; 85610; 85730; 87040; 87077; 87088; 87186

== ENCOUNTER → 2022-10-29 | Outpatient (CLI) | payer OTHER ==
[~2022-10-29] MED LIST changes: +BARIUM for suspension 96% w/w (Vanilla Silq Medium Density) PO ONE; +BARIUM for suspension 98% w/w (Vanilla Silq High Density) PO ONE; +CEFD300C3 PO; +OMEP20TA56 PO; -OMEP20TA7 PO; +ONDA4TAB11 PO
--- NOTE | 2022-10-29 14:58 | Diagnostic Imaging Report ---
INDICATION: Solids and liquids getting stuck as well as upper abdominal pain. Patient ingested effervescent crystals as well as thick barium and imaging of the esophagus was performed. 60 seconds of fluoroscopic time was utilized. Preliminary radiograph of the chest is unremarkable. There is moderate dilatation of the esophagus. There appears to be a high-grade stricture of the distal esophagus at the GE junction. There was very slow passage of ingested barium through the area of narrowing into the stomach. Due to the high-grade stricture, only a few swallows could be performed and the procedure had to be terminated early. No masses are identified. 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 Dictated by: Dictated on workstation # [id number]
== END ==
LOC: RAD 09:27
PROVIDERS: ATTEND Nurse Practitioner
DX: K22.2 Esophageal obstruction (principal)
CPT/HCPCS: 74220

== ENCOUNTER 2023-01-13 13:39 | Emergency (ER) | payer SELFPAY ==
[~2023-01-13] VITALS: Ht 162 cm; Wt 59.8 kg
[~2023-01-13 13:39] MED LIST changes: -BARIUM for suspension 96% w/w (Vanilla Silq Medium Density) PO ONE; -BARIUM for suspension 98% w/w (Vanilla Silq High Density) PO ONE
[2023-01-13] MEDS ORDERED: PROC-1 PO (14:11)
--- NOTE | 2023-01-13 14:11 | ED General ---
General Chief Complaint: General Problems/Pain Stated Complaint: LT SIDE WEAK | HEADACHE Nursing Triage Note: PT STATES SHE WENT TO THE CLINIC FOR A HEADACHE AND THEY NOTICED LT SIDED WEAKNESS AND SENT HER HERE. SHE HAS NOT NOTICED THIS AND DOES NOT KNOW IF THIS IS NEW OR NOT. PT HAS A DENT ON HER HEAD THAT SHE THINKS IS GETTING DEEPER, NO KNOWN CAUSE FOR THE DENT Source of Information: Patient Exam Limitations: No Limitations History of Present Illness Date Seen by Provider: Jan 13, 2023 Time Seen by Provider: 13:41 Initial Comments 37-year-old female with no pertinent past medical history other than chronic headaches coming in due to a headache. She went to the clinic, they thought her left side might have been slightly weak so they wanted her to be evaluated in the ER. The patient states she does not feel like her left side is weak. She denies any trauma, does not take any blood thinners, has not had any medicines for her headache. She states that she starts a new job in less than 3 hours and would like to be sure she is discharged from the ER before then. Denies any neck stiffness, fever, vision changes, weakness, numbness, chest pain, shortness of breath, or any other concerns. She states she typically gets headaches monthly, this one has lasted a couple weeks. Allergies and Home Medications Allergies Coded Allergies: No Known Drug Allergies (Unverified , 01/13/23) Patient Home Medication List Home Medication List Reviewed: Yes Alprazolam (Alprazolam) 1 Mg Tablet, (Reported) Entered as Reported by: TANNER LOUIS on 04/09/16 1203 Cefdinir (Cefdinir) 300 Mg Capsule, 300 MG PO BID Prescribed by: KERRI MONTERO on 08/05/21 1107 Cephalexin (Cephalexin) 500 Mg Tablet, 500 MG PO BID Prescribed by: WALT HUSAIN on 08/26/19 1223 Doxycycline Hyclate (Doxycycline Hyclate) 100 Mg Tablet, 100 MG PO BID Prescribed by: CHERYL ROBERT on 12/30/202037 Hydrocodone/Acetaminophen (Hydrocodone-Acetamin 5-325 mg) 1 Each Tablet, 1 TAB PO Q6H PRN for PAIN-MODERATE (5-7) Prescribed by: KERRI MONTERO on 08/05/21 1107 Naproxen (Naprosyn) 500 Mg Tablet, 500 MG PO BID PRN for PAIN-MODERATE (5-7) Prescribed by: CHERYL ROBERT on 12/30/202037 Ondansetron (Ondansetron Odt) 4 Mg Tab.rapdis, 4 MG PO Q6H PRN for NAUSEA/VOMITING Prescribed by: KERRI MONTERO on 08/05/21 110 Pantoprazole Sodium (Protonix) 40 Mg Tablet.dr, 40 MG PO DAILY Prescribed by: CHERYL ROBERT on 04/09/16 1406 Prochlorperazine Maleate (Compazine) 10 Mg Tablet, 10 MG PO Q8H PRN for headache Prescribed by: FOZIA KYLE on 01/13/23 1411 Review of Systems Review of Systems Constitutional: No fever EENTM: no symptoms reported Respiratory: no symptoms reported Cardiovascular: no symptoms reported Gastrointestinal: no symptoms reported Genitourinary: no symptoms reported Musculoskeletal: no symptoms reported Skin: no symptoms reported Psychiatric/Neurological: See HPI Past Iwpeovz-Lpfcxu-Xmjcfb Hx Seasonal Allergies Seasonal Allergies: No Past Medical History Surgeries: Yes (C-SECTIONS X2 2011 HYST.) Appendectomy, Hysterectomy Respiratory: Yes Asthma Cardiac: No Neurological: No Reproductive Disorders: Yes 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 oz. 50.113649jg; 22.00 BMI Method:Stated General Appearance: No Apparent Distress, WD/WN Eyes: Bilateral Eye Normal Inspection, Bilateral Eye PERRL, Bilateral Eye EOMI HEENT: PERRL/EOMI, Normal ENT Inspection, Pharynx Normal Neck: Full Range of Motion, Normal Inspection, Non Tender, Supple Respiratory: Chest Non Tender, Lungs Clear, Normal Breath Sounds, No Accessory Muscle Use, No Respiratory Distress Cardiovascular: Regular Rate, Rhythm, No Edema, Normal Peripheral Pulses Gastrointestinal: Normal Bowel Sounds, Non Tender, Soft; No Distended, No Guarding Back: Normal Inspection, No CVA Tenderness, No Vertebral Tenderness Extremity: Normal Capillary Refill, Normal Inspection, Normal Range of Motion, Non Tender, No Calf Tenderness, No Pedal Edema Neurologic/Psychiatric: Alert, Oriented x3, No Motor/Sensory Deficits, Normal 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, 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 Norm as Tested, Other (Normal yrrbbj-wz-ymbf, normal wuqr-gj-vihi, normal gait, normal speech, normal visual dorado and visual acuity) Skin: Normal Color, Warm/Dry Progress/Results/Core Measures Suspected Sepsis SIRS Temperature: Pulse: 75 Respiratory Rate: 18 Blood Pressure 120 /75 Mean: 90 Results/Orders My Orders Orders - FOZIA KYLE MD Ct Head Wo (01/13/23 14:04) Ketorolac Injection (Ketorolac Injection (01/13/23 14:15) Acetaminophen Tablet (Acetaminophen Ta (01/13/23 14:15) Medications Given in ED Current Medications Medications Dose Ordered Sig/Tim Route Start Time Stop Time Status Last Admin Dose Admin Acetaminophen 1,000 mg ONCE ONCE PO 01/13/23 14:15 01/13/23 14:16 DC 01/13/23 14:12 1,000 MG Ketorolac Tromethamine 15 mg ONCE ONCE IM 01/13/23 14:15 01/13/23 14:16 DC 01/13/23 14:12 15 MG Vital Signs/I&O 01/13/23 01/13/23 01/13/23 13:58 14:12 14:12 Temp 36.2 36.2 36.2 Pulse 75 Resp 18 B/P (MAP) 120/75 (90) Pulse Ox 98 O2 Delivery Room Air Capillary Refill : Less Than 3 Seconds Blood Pressure Mean: 90 Progress Note : Progress Note 37-year-old female with above history coming in due to headache. She was initially sent in from the clinic for perceived weakness on their exam. The patient states she did not feel like she was weak, and her neuro exam is completely normal here with an NIH of 0. She would also be lower risk for any type of stroke, especially given her age. We will give her an injection and or al medicines for her headache. CT head ordered since she has never had any type of evaluation for her headache that she has had for years intermittently. Very unlikely to see a large mass or large bleed given her normal symptoms. CT imaging negative for any bleed or mass, interpretation, read as negative per the radiologist. On reassessment, continues to be well-appearing, continues to not have any neuro issues on exam. No meningismus or fever making meningitis unlikely. No vision changes making increased intracranial pressure very unlikely. I believe she stable for discharge with outpatient follow-up. She was sent home with strict return precautions. I will recommend follow-up with neurology as an outpatient given she has had years of headache intermittently. Diagnostic Imaging Diagonstic Imaging: CT (head) Comments NAME: NOEMÍ CORRAL [facility] REC#: [id number] PT STATUS: REG ER : 1985 PHYSICIAN: FOZIA KYLE MD ADMIT DATE: 01/13/23/ER Draft Date of Exam:01/13/23 CT HEAD WO PROCEDURE: CT head without contrast. TECHNIQUE: Multiple contiguous axial images were obtained through the brain without the use of intravenous contrast. Auto Exposure Controls were utilized during the CT exam to meet ALARA standards for radiation dose reduction. INDICATION: Headache. No prior studies are available for comparison. Ventricles and sulci are within normal limits. There is no sulcal effacement or midline shift. No acute intra-axial or extra-axial hemorrhage is detected. Cisterns are patent. Visualized paranasal sinuses are clear. IMPRESSION: No acute intracranial process is detected. Dictated on workstation # [id number] Dict: 01/13/23 1421 Trans: 01/13/23 1423 CV [id number] Interpreted by: LIZA CHAUDHRY MD Electronically signed by: Departure Impression Primary Impression: Headache Qualified Codes: G44.229 - Chronic tension-type headache, not intractable Disposition: HOME, SELF-CARE Condition: Stable Departure-Patient Inst. Decision time for Depature: 15:00 Referrals: [facility] (PCP/Family) Primary Care Physician Patient Instructions: Headache, Adult ED Add. Discharge Instructions: Take ibuprofen and/or Tylenol as needed for the headache. If you have a headache on top of that, you can take Compazine mixed with 1 over the counter Benadryl. This will make you sleepy, so try to do this at nighttime, but it should help with your headache. These are not addicting medications, so you do not to worry in regards to your previous addictions. We would recommend following up with a neurologist as an outpatient given that you have had headaches for quite some time, and they can evaluate you for causes for this as well. We are not seeing any signs of stroke or other concerns on her exam or imaging today. Scripts Prochlorperazine Maleate (Compazine) 10 Mg Tablet 10 MG PO Q8H PRN for headache for 5 Days, #15 TAB Prov: FOZIA KYLE MD 01/13/23 Work/School Note: Work Release Form Date Seen in the Emergency Department: Jan 13, 2023 Return to Work: Jan 14, 2023 Restrictions: No Restrictions FOZIA KYLE MD Jan 13, 2023 14:11
[2023-01-13] MEDS ORDERED: KETOROLAC INJ 30 MG/ML VIAL IM ONE (14:15)
[2023-01-13] MEDS ORDERED: ACETAMINOPHEN 500 MG TABLET PO ONE (14:15)
--- NOTE | 2023-01-13 14:23 | Diagnostic Imaging Report ---
PROCEDURE: CT head without contrast. TECHNIQUE: Multiple contiguous axial images were obtained through the brain without the use of intravenous contrast. Auto Exposure Controls were utilized during the CT exam to meet ALARA standards for radiation dose reduction. INDICATION: Headache. No prior studies are available for comparison. Ventricles and sulci are within normal limits. There is no sulcal effacement or midline shift. No acute intra-axial or extra-axial hemorrhage is detected. Cisterns are patent. Visualized paranasal sinuses are clear. IMPRESSION: No acute intracranial process is detected. Dictated by: Dictated on workstation # [id number]
[2023-01-13 14:33] VITALS: BP 120/75
== END 2023-01-13 14:33 | disposition home or self-care (01) ==
LOC: EDUNIT# 13:39 → ER 13:41
DX: R51.9 Headache, unspecified (principal)
CPT/HCPCS: 70450

== ENCOUNTER 2023-03-14 11:16 | Emergency (ER) | payer SELFPAY ==
[~2023-03-14] VITALS: Ht 162 cm; Wt 59.0 kg
[~2023-03-14 11:16] MED LIST changes: +PROC-1 PO
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
[2023-03-14] MEDS ORDERED: KETOROLAC INJ 30 MG/ML VIAL IM ONE (11:45)
--- NOTE | 2023-03-14 12:10 | Diagnostic Imaging Report ---
RIBS/UNILATERAL WITH CHEST INDICATION: Right-sided rib pain COMPARISON: None available. TECHNIQUE: PA chest with 2 views of right ribs FINDINGS: Lungs are clear. No pleural effusion or pneumothorax. Normal cardiac silhouette. Mediastinal contours are normal. No acute or healing right-sided rib fracture is appreciated. IMPRESSION: No right-sided rib fracture. Dictated by: Dictated on workstation # [id number]
[2023-03-14 12:58] VITALS: BP 113/79
== END 2023-03-14 12:58 | disposition home or self-care (01) ==
LOC: EDUNIT# 11:16 → ER 11:18
DX: R07.81 Pleurodynia (principal); F17.290 Nicotine dependence, other tobacco product, uncomplicated; Z28.310 Unvaccinated for COVID-19
CPT/HCPCS: 71101